=== PATIENT | male | born 1955 | race Caucasian/White ===

== ENCOUNTER 2023-03-13 18:06 | Emergency (ER) | payer OTHER ==
--- OUTSIDE RECORDS SUMMARY | 2023-03-13 18:10 | XMS REPORT | Clinical Summary ---
Author Name Unknown Organization [facility] Address [address] [place] [address] Care Team Providers Care Business Center Attendant Name Role Phone Hesham Lima MD Unavailable [phone] Brandin Curtis MD Primary Care Provider [phone] Quinton Montano MD Unavailable [phone] Mable Perales MD Unavailable [phone] Lyndon Patrick Unavailable [phone] Allergies Active Allergy Reactions Criticality Noted Date Comments Atorvastatin Other (See Comments) Low 11/23/2018 Other reaction(s): Other (see comments) Clopidogrel Hives,Other (See Comments) Medium 11/23/2018 Other reaction(s): Other (see comments) Patient reports getting hives. Meperidine Other (See Comments) Medium 11/23/2018 Vomiting Medications Medication Sig Dispensed Refills Start Date End Date Status Brilinta 90 mg tablet Take 1 tablet (90 mg) by mouth twice daily. 0 01/15/20 22 Active simethicone (MYLICON) 80 mg chewable tablet Chew 1 tablet (80 mg) every 6 (six) hours as needed for flatulence. 0 Active ondansetron (Zofran ODT) 8 mg disintegrating tabletIndications:A denocarcinoma, NOS of lower third of esophagus Dissolve 1 tablet (8 mg) on the tongue every 8 (eight) hours as needed for nausea or vomiting. (First Choice) 30 tablet 2 12/03/19 23 Active prochlorperazine (Compazine) 10 mg tabletIndications:A denocarcinoma, NOS of lower third of esophagus Take 1 tablet (10 mg) by mouth every 6 (six) hours as needed for nausea or vomiting. (Second Choice) 60 tablet 2 12/03/19 Active Additional Information Patient not taking.Reason: No longer taking, Reported on 01/02/2023 capecitabine (Xeloda) 500 mg tabletIndications:A denocarcinoma, NOS of lower third of esophagus Take 2 tablets by mouth every morning and take 3 tablets every evening Friday through Friday with radiation. 125 tablet 0 12/03/19 Active Additional Information Patient not taking.Reported on 03/13/2023 apixaban (ELIQUIS) 5 mg tabletIndications:p revention of venous thromboembolism recurrence Take 1 tablet (5 mg) by mouth every 12 (twelve) hours. 0 Active metoprolol tartrate (LOPRESSOR) 25 mg tablet Take 0.5 tablets (12.5 mg) by mouth twice daily. 0 12/23/19 Active aspirin 81 mg chewable tablet Chew 1 tablet (81 mg). 0 Active xyloxylin oral suspension (AMB-CMPD)Indicatio ns:Adenocarcinoma, NOS of lower third of esophagus Swish and swallow 15 mL by mouth 4 (four) times a day (before meals and at night) 480 mL 5 01/02/20 Active Additional Information Patient not taking.Reported on 03/13/2023 pantoprazole (PROTONIX) 40 mg EC tabletIndications:A denocarcinoma, NOS of lower third of esophagus TAKE 1 TABLET BY MOUTH 2 TIMES DAILY BEFORE MEALS 90 tablet 0 02/29/20 Active mirtazapine (REMERON) 15 mg tabletIndications:A denocarcinoma, NOS of lower third of esophagus TAKE 1 TABLET BY MOUTH EVERY DAY AT NIGHT NEEDED FOR SLEEP AND/OR APPETITE 30 tablet 0 02/29/20 Active rosuvastatin (CRESTOR) 20 mg tablet Take 1 tablet (20 mg) by mouth at bedtime. 0 Active carvedilol (COREG) 3.125 mg tablet Take 1 tablet (3.125 mg) by mouth twice daily. 0 01/15/20 22 023 Discontinued(No t Applicable) clonazePAM (KlonoPIN) 0.5 mg tablet Take 1 tablet (0.5 mg) by mouth at bedtime. 0 07/16/19 23 023 Discontinued(Re order) lisinopril (PRINIVIL,ZESTRIL) 10 mg tablet Take 1 tablet (10 mg) by mouth every morning. 0 01/15/20 22 023 Discontinued(No t Applicable) pantoprazole (PROTONIX) 40 mg EC tablet Take 1 tablet (40 mg) by mouth 2 (two) times a day before meals. 0 10/17/19 23 023 Discontinued(Re order) psyllium 0.4 gram cap Take 0.52 g by mouth daily. 0 01/15/20 22 023 Discontinued(No t Applicable) rosuvastatin (CRESTOR) 20 mg tablet Take 1 tablet (20 mg) by mouth at bedtime. 0 01/15/20 22 023 multivitamin tab tablet Take 1 tablet by mouth daily. 0 023 Discontinued(No t Applicable) milk thistle 175 mg tablet Take 1 tablet (175 mg) by mouth daily. 0 023 Discontinued(No t Applicable) pantoprazole (PROTONIX) 40 mg EC tabletIndications:A denocarcinoma, NOS of lower third of esophagus Take 1 tablet (40 mg) by mouth 2 (two) times a day before meals. 90 tablet 1 11/22/19 23 023 Discontinued(Re order) pantoprazole (PROTONIX) 40 mg EC tabletIndications:A denocarcinoma, NOS of lower third of esophagus Take 1 tablet (40 mg) by mouth 2 (two) times a day before meals. 90 tablet 1 11/27/19 23 023 Discontinued clonazePAM (KlonoPIN) 0.5 mg tabletIndications:A denocarcinoma, NOS of lower third of esophagus Take 1 tablet (0.5 mg) by mouth at bedtime. 14 tablet 0 12/20/19 23 023 Discontinued metoprolol tartrate (LOPRESSOR) 50 mg tabletIndications:v entricular rate control in atrial fibrillation Take 0.5 tablets (25 mg) by mouth twice daily. 25mg half tab twice a day 0 023 Discontinued(Th erapy completed) mirtazapine (Remeron) 15 mg tabletIndications:A denocarcinoma, NOS of lower third of esophagus Take 1 tablet (15 mg) by mouth nightly as needed for sleep (appetite). 30 tablet 0 12/27/19 23 023 Discontinued(Re order) mirtazapine (Remeron) 15 mg tabletIndications:A denocarcinoma, NOS of lower third of esophagus Take 1 tablet (15 mg) by mouth nightly as needed for sleep (appetite). 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 Decreased cardiac ejection fraction 01/21/2018 Encounters Date Type Department Care Team Description 03/13/2023 1:40 PM EXERCISER HORSE [facility] [address] [place] [address] Main [facility], 7th [place] [address] Brandin Curtis MD Adenocarcinoma, NOS of lower third of esophagus 03/13/2023 Travel 03/13/2023 Orders Only [facility] [address] [place] [address] Main [facility], 7th [place] [address] Sammi Navarro RPH 03/12/2023 12:30 PM EXERCISER HORSE Ancillary [facility] [address] [facility] [address] [place] [address] Brandin Curtis MD Adenocarcinoma, NOS of lower third of esophagus 03/12/2023 Prep for Surgery [facility] - Gastroenterology, Hepatology & Nutrition [address] [place] [address] Main dg, 7th [place] [address] Moises Morgan PA Adenocarcinoma, NOS of lower third of esophagus (Primary Dx) 03/12/2023 Travel 03/11/2023 Prep for Procedure [facility] [address] [place] [address] Main dg, 5th [place] [address] Fang Pritchard PA Adenocarcinoma, NOS of lower third of esophagus (Primary Dx) 03/10/2023 Orders Only [facility] [address] [place] [address] Main dg, 7th [place] [address] Rabmarii, aTlhadez, PA-C Adenocarcinoma, NOS of lower third of esophagus (Primary Dx) 02/27/2023 Refill [facility] Main Bldg, 7th [place] [address] Rabmarii, Forestamee, PA-C Adenocarcinoma, NOS of lower third of esophagus 02/27/2023 Refill [facility] [address] [place] [address] Main Bldg, 7th [place] [address] Rupali Pickering PA Adenocarcinoma, NOS of lower third of esophagus 01/31/2023 Orders Only [facility] [address] [place] [address] Main Bldg, 7th [place] [address] Rabmarii, Dustin, PA-C Adenocarcinoma, NOS of lower third of esophagus 01/13/2023 Orders Only [facility] [address] [place] [address] Main dg, 1st Floo [place] [address] Alison Winn APRN Adenocarcinoma, NOS of lower third of esophagus (Primary Dx) 01/09/2023 Documentation [facility] [address] [place] [address] Main [place]ld[place] [address] Quinton Montano MD 01/09/2023 Travel 01/08/2023 Travel 01/07/2023 Travel 01/06/2023 Travel 01/03/2023 Travel 01/02/2023 12:40 PM CDT [facility] [address] [place] [address] Main Bldg, 7th [place] [address] Brandin Curtis MD Adenocarcinoma, NOS of lower third of esophagus 01/02/2023 Orders Only [facility] - Surgical Oncology [facility] Main Bldg, 9th [place] [address] Brooke Terrazas APRN Adenocarcinoma, NOS of lower third of esophagus (Primary Dx) 01/02/2023 Travel 01/01/2023 10:50 AM CDT - 01/01/2023 11:59 PM CDT Hospital Encounter [facility] [address] [facility] Main Bldg, 1st Floo [place] [address] Quinton Montano MD Adenocarcinoma, NOS of lower third of esophagus (Primary Dx) Discharge Disposition: Home 01/01/2023 Travel 12/31/2022 10:45 AM CDT Nutrition Clinical Nutrition For your Nutrition appointment location directions please call: Brandin Curtis MD Cooke, Sarah K, RD 12/31/2022 Travel 12/30/2022 10:00 AM CDT Infusion MD [facility] [place] - Infusion [address] [facility] [address] [place] [address] Rupali Pickering PA Pickens, Mirasol A RN Adenocarcinoma, NOS of lower third of esophagus (Primary Dx) 12/30/2022 Travel 12/27/2022 Travel 12/26/2022 2:40 PM CDT [facility] [address] [place] [address] Main Bldg, 7th [place] [address] Brandin Curtis MD Encounter for other preprocedural examination (Primary Dx); Adenocarcinoma, NOS of lower third of esophagus; Loss of appetite 12/26/2022 1:45 PM CDT Nutrition Clinical Nutrition For your Nutrition appointment location directions please call: Brandin Curtis MD Cooke, Sarah K, RICK 12/26/2022 Orders Only [facility] Main Bldg, 7th [place] [address] Sammi Navarro RPH 12/26/2022 Travel 12/25/2022 Travel 12/24/2022 1:01 PM CDT - 12/24/2022 11:59 PM CDT Hospital Encounter [facility] [address] [facility] Main Bldg, 1st Floo [place] [address] Coby Rodas MD Ning, Matthew Stephen, MD Discharge Disposition: Home 12/24/2022 Travel 12/23/2022 Orders Only [facility] Main Bldg, 7th [place] [address] Rupali Pickering PA Adenocarcinoma, NOS of lower third of esophagus (Primary Dx) 12/19/2022 3:40 PM CDT Telemedicine [facility] Main Bldg, 7th [place] [address] Brandin Curtis MD Adenocarcinoma, NOS of lower third of esophagus (Primary Dx) 12/19/2022 Orders Only [facility] Main Bldg, 7th [place] [address] Brandin Curtis MD 12/19/2022 Orders Only [facility] [address] [place] [address] Main Bldg, 7th [place] [address] Sammi Navarro RPH 12/19/2022 Travel 12/18/2022 12:40 PM CDT - 12/18/2022 11:59 PM CDT Hospital Encounter [facility] [address] [facility] Main Bldg, 1st Floo [place] [address] Quinton Montano MD Discharge Disposition: Home 12/18/2022 Orders Only [facility] Main Bldg, 1st Floo [place] [address] Quinton Montano MD Adenocarcinoma, NOS of lower third of esophagus (Primary Dx) 12/18/2022 Documentation Clinical Nutrition For your Nutrition appointment location directions please call: Kaykay Hull RD 12/18/2022 Travel 12/17/2022 Telephone [facility] - Medical Oncology [address] Main Bldg, 7th [place] [address] Breann Bravo MA 12/17/2022 Travel 12/16/2022 2:15 PM CDT Infusion MD [facility] in [place] - Infusion [address] [place] [address] [address] [place] [address] Rupali Pickering PA Pickens, Mirasol A, RN Adenocarcinoma, NOS of lower third of esophagus (Primary Dx) 12/16/2022 Travel 12/13/2022 Travel 12/12/2022 Travel 12/11/2022 1:15 PM CDT - 12/11/2022 11:59 PM CDT Hospital Encounter [facility] Main Bldg, 1st Floo [place] [address] Quinton Montano MD Discharge Disposition: Home 12/11/2022 Documentation Clinical Nutrition For your Nutrition appointment location directions please call: Kaykay Hull RD 12/11/2022 Travel 12/10/2022 11:00 AM CDT Telemedicine [facility] Main Bldg, 7th [place] [address] Rupali Pickering PA Adenocarcinoma, NOS of lower third of esophagus (Primary Dx); Nausea; Encounter for preprocedural laboratory examination 12/10/2022 Travel 12/09/2022 1:45 PM CDT Infusion MD [facility] in [place] - Infusion [address] [place] [address] Rupali Pickering PA Castro, Sheila O RN Adenocarcinoma, NOS of lower third of esophagus (Primary Dx) 12/09/2022 Travel 12/06/2022 Travel 12/05/2022 1:00 PM CDT Nutrition Clinical Nutrition For your Nutrition appointment location directions please call: Brandin Curtis MD Cooke, Sarah K, RD 12/05/2022 Travel 12/04/2022 11:17 AM CDT - 12/04/2022 11:59 PM CDT Hospital Encounter [facility] [address] [place] [address] Main Bldg, 1st Floo near Elevator G [place] [id number] Quinton Montano MD Discharge Disposition: Home 12/04/2022 Travel 12/03/2022 4:30 PM CDT Infusion MD [facility] [place] - Infusion [address] [facility] [address] [place] [address] Rupali Pickering PA Momin, Romina A, RN Adenocarcinoma, NOS of lower third of esophagus (Primary Dx) 12/03/2022 Travel 11/29/2022 Orders Only [facility] [address] Main Bldg, 7th [place] [address] Rupali Pickering PA 11/29/2022 Travel 11/28/2022 Travel 11/27/2022 12:36 PM CDT - 11/27/2022 11:59 PM CDT Hospital Encounter [facility] Main Bldg, 1st [place]oo [place] [address] Quinton Montano MD Discharge Disposition: Home 11/27/2022 Travel 11/26/2022 Orders Only [facility] [address] Main Bldg, 7th [place] [address] Rupali Pickering PA Adenocarcinoma, NOS of lower third of esophagus (Primary Dx) 11/25/2022 6:00 AM CDT - 11/25/2022 11:59 PM CDT Hospital Encounter [facility] Main [place]ld[place] [address] Brandin Curtis MD Discharge Disposition: Home 11/22/2022 Orders Only [facility] [address] Main Bldg, 7th [place] [address] Brandin Curtis MD Adenocarcinoma, NOS of lower third of esophagus (Primary Dx) 11/22/2022 Documentation [facility] [address] Main [place]ld[place] [address] Quinton Montano MD 11/22/2022 Documentation [facility] Main Bld[place] [address] Quinton Montano MD 11/21/2022 Orders Only [facility] [address] Main Bldg, 7th [place] [address] Rupali Pickering PA Adenocarcinoma, NOS of lower third of esophagus (Primary Dx) 11/20/2022 1:24 PM CDT - 11/20/2022 11:59 PM CDT Hospital Encounter [facility] [address] Main Bldg near Elevator G [place] [id number] Quinton Montano MD Discharge Disposition: Home 11/20/2022 Documentation Radiation Treatment Center [facility] [address] Main Bldg near Elevator G [place] [id number] Quinton Montano MD 11/20/2022 Documentation [facility] Main Bldg near Elevator G [place] [id number] Quinton Montano MD 11/20/2022 Travel 11/19/2022 Multidisciplinary Visit [facility] - Surgical Oncology [address] Main Bldg, 9th [place] [address] Purvi De La Fuente RN 11/19/2022 Orders Only [facility] [address] Main Bldg, 7th [place] [address] Brandin Curtis MD 11/18/2022 Orders Only [facility] [address] Main Bldg, 1st Floo near Elevator G [place] [id number] Quinton Montano MD Adenocarcinoma, NOS of lower third of esophagus (Primary Dx) 11/15/2022 8:43 AM CDT - 11/15/2022 11:59 PM CDT Hospital Encounter [facility] [address] Main Bldg, 1st Floo near Elevator G [place] [id number] Rupali Pickering PA Ning, Matthew Stephen, MD Adenocarcinoma, NOS of lower third of esophagus Discharge Disposition: Home 11/15/2022 6:45 AM CDT - 11/15/2022 8:42 AM CDT Hospital Encounter Cardiopulmonary Center - Pulmonology Lab [address] [facility] Main Bldg, 6th [place] [address] Brooke Terrazas APRN Esophageal cancer Discharge Disposition: Home 11/15/2022 Travel 11/14/2022 3:20 PM CDT Consult [facility] - Surgical On[facility] Main Bldg, 9th [place] [address] Mable Perales MD Esophageal cancer 11/14/2022 2:32 PM CDT - 11/14/2022 11:59 PM CDT Hospital Encounter Diagnostic Laboratory Center [facility] Main [facility], [place] [address] Rupali Pickering PA Esophageal cancer Discharge Disposition: Home 11/14/2022 Travel 11/11/2022 3:40 PM CDT Telemedicine [facility] [address] [place] [address] Main dg, 7th [place] [address] Brandin Curtis MD Esophageal cancer (Primary Dx); Tobacco use 11/11/2022 Orders Only [facility] - [facility] Oncology [address] [place] [address] Main dg, 9th [place] [address] Brooke Terrazas APRN Esophageal cancer (Primary Dx) 11/08/2022 8:30 AM CDT Ancillary Procedure [facility] [address] [facility] 2nd [place] [address] Rupali Pickering PA Esophageal cancer 11/08/2022 Orders Only [facility] [address] [place] [address] Main Bldg, 7th [place] [address] Rupali Pickering PA 11/08/2022 Travel 11/07/2022 8:00 PM CDT Ancillary Procedure [facility] [address] [place] [address] Brandin Curtis MD Cancer 11/07/2022 2:20 PM CDT Office Visit [facility] [address] [place] [address] Main dg, 7th [place] [address] Brandin Curtis MD Esophageal cancer (Primary Dx) 11/07/2022 1:30 PM CDT NPR [facility] PATIENT ACCESS Brandin Curtis MD 11/07/2022 Orders Only [facility] [address] [facility] Main Bldg, 7th [place] [address] Rupali Pickering PA Esophageal cancer (Primary Dx) 11/07/2022 Travel 11/06/2022 Lab Requisition [facility] Hola Gao MD Gilbert-Lewis, Jaron Singh MD Discharge Disposition: Home 11/05/2022 Orders Only [facility] Main dg, 7th [place] [address] Rupali Pickering PA Esophageal cancer (Primary Dx) 11/01/2022 Orders Only [facility] Main dg, 7th [place] [address] Rupali Pickering PA Esophageal cancer (Primary Dx) 10/28/2022 Travel after 03/13/2022 Immunizations Name Administration Dates Next Due Moderna SARS-CoV-2 Vaccination 03/27/2022,2020,06/23/2020,05/24/2020 Zoster, Unspecified 11/09/2020 Surgical History Surgery Date Site/Laterality Comments CORONARY ARTERY BYPASS GRAFT 3 CHOLECYSTECTOMY UPPER GASTROINTESTINAL ENDOSCOPY 2022 Medical History Medical History Date Comments Myocardial infarction November 2017 Stents Hyperlipidemia Irregular heart beat Hearing loss 2002 Sinusitis 1980 Swallowing problem August 2022 Gastric reflux Gallstone Removed Sexual dysfunction 2017 Anxiety Family History Medical History Relation Name Comments Prostate cancer Father Julio César Jacques Skin cancer Father Julio César Jacques Ovarian cancer Mother Marisol Jacques Relation Name Status Comments Father Julio César Jacques Mother Marisol Jacques Social History Tobacco Use Types Packs/Day Years Used Date Smoking Tobacco: Every Day Cigarettes 1 Started: 11/22/1982; Last attempted to quit: 11/07/2022 Smokeless Tobacco: Never Tobacco Cessation:Ready to Q uit: Yes Alcohol Use Standard Drinks/Week Comments Not Currently 0 (1 standard drink = 0.6 oz pur e alcohol) Sex and Gender Information Value Date Recorded Sex Assigned at Not on file Gender Identity Not on file Sexual Orientation Not on file Job Start Date Occupation Industry Not on file Not on file Not on file Obstetrics History Last Filed Vital Signs Vital Sign Reading Time Taken Comments Blood Pressure 105/69 03/13/2023 1:57 PM EXERCISER HORSE Pulse 70 03/13/2023 1:57 PM EXERCISER HORSE Temperature 36.5 C (97.7 F) 03/13/2023 1:57 PM CS T Respiratory Rate 18 03/13/2023 1:57 PM EXERCISER HORSE Oxygen Saturation 97% 03/13/2023 1:57 PM EXERCISER HORSE Inhaled Oxygen Concentration - - Weight 80.2 kg (176 lb 12.9 oz) 03/13/2023 1:44 PM EXERCISER HORSE Height 179.3 cm (5' 10.59") 12/03/2022 3:33 PM C DT Body Mass Index 24.95 12/03/2022 3:33 PM CDT Plan of Treatment Upcoming Encounters Date Type Department Care Team Description 03/17/2023 Hospital Encounter [facility] [address] [place] [address], 5th [place] [address] 03/19/2023 10:30 AM EXERCISER HORSE Appointment [facility] [address] [place] [address], 1st Floo [place] [address] Quinton Montano MD [address] [place] [address] [id number] Scheduled Procedures Name Priority Associated Diagnoses Date/Ti me UPPER GASTROINTESTINAL ENDOS COPY WITH ENDOSCOPIC ULTRASOUND EXAMINATION Adenocarcinoma, NOS of lower third of esophagus Health Maintenance Due Date Last Done Comments COVID-19 Vaccination () 11/29/2022 03/27/2022, 02/14/2021, 06/23/2020, Additional history exists Medical Devices Implanted Type Area Cost Accounting Analyst Device Identifier Shelf Expiration Date Model / Serial / Lot Stent Stent Heart Description:Resolute Sathya 1. 3.0 mm x 34 mm, 2019-07-08 2. 3.0 mm x 22 mm, 2019-07-07 3. 3.5 mm x 18 mm, 2019-07-22 Procedures Procedure Name Priority Date/Time Associated Diagnosis Comments PETCT F18 FDG (FLUORODEOXYGLUCOSE) WITH CONTRAST Routine 03/12/2023 2:24 PM EXERCISER HORSE Adenocarcinoma, NOS of lower third of esophagus .CBC Routine 03/12/2023 11:59 AM EXERCISER HORSE Adenocarcinoma, NOS of lower third of esophagus CARCINOEMBRYONIC ANTIGEN Routine 023 11:59 AM EXERCISER HORSE Adenocarcinoma, NOS of lower third of esophagus LACTATE DEHYDROGENASE Routine 03/12/2023 11:59 AM EXERCISER HORSE Adenocarcinoma, NOS of lower third of esophagus PHOSPHORUS LEVEL Routine 03/12/2023 11:5 9 AM EXERCISER HORSE Adenocarcinoma, NOS of lower third of esophagus MAGNESIUM LEVEL Routine 03/12/2023 11:59 AM EXERCISER HORSE Adenocarcinoma, NOS of lower third of esophagus COMPREHENSIVE METABOLIC PANEL Routine 03/12/2023 11:59 AM EXERCISER HORSE Adenocarcinoma, NOS of lower third of esophagus COMPLETE BLOOD COUNT W/ DIFFERENTIAL Routine 03/12/2023 11:59 AM EXERCISER HORSE Adenocarcinoma, NOS of lower third of esophagus FRACTIONATED BILIRUBIN Routine 8:45 AM CDT Adenocarcinoma, NOS of lower third of esophagus TOTAL PROTEIN Routine 12/30/2022 8:45 AM CDT Adenocarcinoma, NOS of lower third of esophagus ASPARTATE AMINOTRANSFERASE Routine 12/30/2022 8:45 AM CDT Adenocarcinoma, NOS of lower third of esophagus ALANINE AMINOTRANSFERASE Routine 023 8:45 AM CDT Adenocarcinoma, NOS of lower third of esophagus ALKALINE PHOSPHATASE Routine 12/30/2022 8:45 AM CDT Adenocarcinoma, NOS of lower third of esophagus ALBUMIN LEVEL Routine 12/30/2022 8:45 AM CDT Adenocarcinoma, NOS of lower third of esophagus CALCIUM LEVEL Routine 12/30/2022 8:45 AM CDT Adenocarcinoma, NOS of lower third of esophagus .GLOMERULAR FILTRATION RATE Routine 12/30/2022 8:45 AM CDT Adenocarcinoma, NOS of lower third of esophagus SERUM CREATININE Routine 12/30/2022 8:45 AM CDT Adenocarcinoma, NOS of lower third of esophagus ELECTROLYTE PANEL Routine 12/30/2022 8:4 5 AM CDT Adenocarcinoma, NOS of lower third of esophagus BLOOD UREA NITROGEN Routine 12/30/2022 8 :45 AM CDT Adenocarcinoma, NOS of lower third of esophagus GLUCOSE LEVEL Routine 12/30/2022 8:45 AM CDT Adenocarcinoma, NOS of lower third of esophagus DIFFERENTIAL Routine 12/30/2022 8:45 AM CDT Adenocarcinoma, NOS of lower third of esophagus .CBC Routine 12/30/2022 8:45 AM CDT Adenocarcinoma, NOS of lower third of esophagus COMPREHENSIVE METABOLIC PANEL Routine 12/30/2022 8:45 AM CDT Adenocarcinoma, NOS of lower third of esophagus COMPLETE BLOOD COUNT W/ DIFFERENTIAL Routine 12/30/2022 8:45 AM CDT Adenocarcinoma, NOS of lower third of esophagus FRACTIONATED BILIRUBIN Routine 10:56 AM CDT Adenocarcinoma, NOS of lower third of esophagus TOTAL PROTEIN Routine 12/16/2022 10:56 AM CDT Adenocarcinoma, NOS of lower third of esophagus ASPARTATE AMINOTRANSFERASE Routine 12/16/2022 10:56 AM CDT Adenocarcinoma, NOS of lower third of esophagus ALANINE AMINOTRANSFERASE Routine 023 10:56 AM CDT Adenocarcinoma, NOS of lower third of esophagus ALKALINE PHOSPHATASE Routine 12/16/2022 10:56 AM CDT Adenocarcinoma, NOS of lower third of esophagus ALBUMIN LEVEL Routine 12/16/2022 10:56 AM CDT Adenocarcinoma, NOS of lower third of esophagus CALCIUM LEVEL Routine 12/16/2022 10:56 AM CDT Adenocarcinoma, NOS of lower third of esophagus .GLOMERULAR FILTRATION RATE Routine 12/16/2022 10:56 AM CDT Adenocarcinoma, NOS of lower third of esophagus SERUM CREATININE Routine 12/16/2022 10:5 6 AM CDT Adenocarcinoma, NOS of lower third of esophagus ELECTROLYTE PANEL Routine 12/16/2022 10: 56 AM CDT Adenocarcinoma, NOS of lower third of esophagus BLOOD UREA NITROGEN Routine 12/16/2022 1 0:56 AM CDT Adenocarcinoma, NOS of lower third of esophagus GLUCOSE LEVEL Routine 12/16/2022 10:56 AM CDT Adenocarcinoma, NOS of lower third of esophagus DIFFERENTIAL Routine 12/16/2022 10:56 AM CDT Adenocarcinoma, NOS of lower third of esophagus .CBC Routine 12/16/2022 10:56 AM CDT Adenocarcinoma, NOS of lower third of esophagus COMPREHENSIVE METABOLIC PANEL Routine 12/16/2022 10:56 AM CDT Adenocarcinoma, NOS of lower third of esophagus COMPLETE BLOOD COUNT W/ DIFFERENTIAL Routine 12/16/2022 10:56 AM CDT Adenocarcinoma, NOS of lower third of esophagus FRACTIONATED BILIRUBIN Routine 3 11:02 AM CDT Adenocarcinoma, NOS of lower third of esophagus TOTAL PROTEIN Routine 12/09/2022 11:02 AM CDT Adenocarcinoma, NOS of lower third of esophagus ASPARTATE AMINOTRANSFERASE Routine 12/09/2022 11:02 AM CDT Adenocarcinoma, NOS of lower third of esophagus ALANINE AMINOTRANSFERASE Routine 023 11:02 AM CDT Adenocarcinoma, NOS of lower third of esophagus ALKALINE PHOSPHATASE Routine 12/09/2022 11:02 AM CDT Adenocarcinoma, NOS of lower third of esophagus ALBUMIN LEVEL Routine 12/09/2022 11:02 AM CDT Adenocarcinoma, NOS of lower third of esophagus CALCIUM LEVEL Routine 12/09/2022 11:02 AM CDT Adenocarcinoma, NOS of lower third of esophagus .GLOMERULAR FILTRATION RATE Routine 12/09/2022 11:02 AM CDT Adenocarcinoma, NOS of lower third of esophagus SERUM CREATININE Routine 12/09/2022 11:0 2 AM CDT Adenocarcinoma, NOS of lower third of esophagus ELECTROLYTE PANEL Routine 12/09/2022 11: 02 AM CDT Adenocarcinoma, NOS of lower third of esophagus BLOOD UREA NITROGEN Routine 12/09/2022 1 1:02 AM CDT Adenocarcinoma, NOS of lower third of esophagus GLUCOSE LEVEL Routine 12/09/2022 11:02 AM CDT Adenocarcinoma, NOS of lower third of esophagus DIFFERENTIAL Routine 12/09/2022 11:02 AM CDT Adenocarcinoma, NOS of lower third of esophagus .CBC Routine 12/09/2022 11:02 AM CDT Adenocarcinoma, NOS of lower third of esophagus COMPREHENSIVE METABOLIC PANEL Routine 12/09/2022 11:02 AM CDT Adenocarcinoma, NOS of lower third of esophagus COMPLETE BLOOD COUNT W/ DIFFERENTIAL Routine 12/09/2022 11:02 AM CDT Adenocarcinoma, NOS of lower third of esophagus FRACTIONATED BILIRUBIN Routine 11:17 AM CDT Adenocarcinoma, NOS of lower third of esophagus TOTAL PROTEIN Routine 12/03/2022 11:17 AM CDT Adenocarcinoma, NOS of lower third of esophagus ASPARTATE AMINOTRANSFERASE Routine 12/03/2022 11:17 AM CDT Adenocarcinoma, NOS of lower third of esophagus ALANINE AMINOTRANSFERASE Routine 023 11:17 AM CDT Adenocarcinoma, NOS of lower third of esophagus ALKALINE PHOSPHATASE Routine 12/03/2022 11:17 AM CDT Adenocarcinoma, NOS of lower third of esophagus ALBUMIN LEVEL Routine 12/03/2022 11:17 AM CDT Adenocarcinoma, NOS of lower third of esophagus CALCIUM LEVEL Routine 12/03/2022 11:17 AM CDT Adenocarcinoma, NOS of lower third of esophagus .GLOMERULAR FILTRATION RATE Routine 12/03/2022 11:17 AM CDT Adenocarcinoma, NOS of lower third of esophagus SERUM CREATININE Routine 12/03/2022 11:1 7 AM CDT Adenocarcinoma, NOS of lower third of esophagus ELECTROLYTE PANEL Routine 12/03/2022 11: 17 AM CDT Adenocarcinoma, NOS of lower third of esophagus BLOOD UREA NITROGEN Routine 12/03/2022 1 1:17 AM CDT Adenocarcinoma, NOS of lower third of esophagus GLUCOSE LEVEL Routine 12/03/2022 11:17 AM CDT Adenocarcinoma, NOS of lower third of esophagus DIFFERENTIAL Routine 12/03/2022 11:17 AM CDT Adenocarcinoma, NOS of lower third of esophagus .CBC Routine 12/03/2022 11:17 AM CDT Adenocarcinoma, NOS of lower third of esophagus CARCINOEMBRYONIC ANTIGEN Routine 023 11:17 AM CDT Adenocarcinoma, NOS of lower third of esophagus COMPREHENSIVE METABOLIC PANEL Routine 12/03/2022 11:17 AM CDT Adenocarcinoma, NOS of lower third of esophagus COMPLETE BLOOD COUNT W/ DIFFERENTIAL Routine 12/03/2022 11:17 AM CDT Adenocarcinoma, NOS of lower third of esophagus SPIROMETRY W/O DILATORS, DLCO AND BODY PLETHSMOGRAPHIC LUNG VOLUMES Routine 11/15/2022 9:32 AM CDT Esophageal cancer MD CAMACHO BLOOD CONTROL Routine 11/14/2022 2:40 PM CDT HP LB LIQUID BIOPSY PANEL V1 INTERPRETATION AND REPORT Routine 11/14/2022 2:40 PM CDT FRACTIONATED BILIRUBIN Routine 2:40 PM CDT Esophageal cancer TOTAL PROTEIN Routine 11/14/2022 2:40 PM CDT Esophageal cancer ASPARTATE AMINOTRANSFERASE Routine 11/14/2022 2:40 PM CDT Esophageal cancer ALANINE AMINOTRANSFERASE Routine 023 2:40 PM CDT Esophageal cancer ALKALINE PHOSPHATASE Routine 11/14/2022 2:40 PM CDT Esophageal cancer ALBUMIN LEVEL Routine 11/14/2022 2:40 PM CDT Esophageal cancer CALCIUM LEVEL Routine 11/14/2022 2:40 PM CDT Esophageal cancer .GLOMERULAR FILTRATION RATE Routine 11/14/2022 2:40 PM CDT Esophageal cancer SERUM CREATININE Routine 11/14/2022 2:40 PM CDT Esophageal cancer ELECTROLYTE PANEL Routine 11/14/2022 2:4 0 PM CDT Esophageal cancer BLOOD UREA NITROGEN Routine 11/14/2022 2 :40 PM CDT Esophageal cancer GLUCOSE LEVEL Routine 11/14/2022 2:40 PM CDT Esophageal cancer DIFFERENTIAL Routine 11/14/2022 2:40 PM CDT Esophageal cancer .CBC Routine 11/14/2022 2:40 PM CDT Esophageal cancer HP LB NRAS MUTATION ANALYSIS COLLECTION, BLOOD Routine 11/14/2022 2:40 PM CDT Esophageal cancer HP LB BRAF MUTATION ANALYSIS COLLECTION, BLOOD Routine 11/14/2022 2:40 PM CDT Esophageal cancer HP LB APC MUTATION ANALYSIS COLLECTION, BLOOD Routine 11/14/2022 2:40 PM CDT Esophageal cancer CARCINOEMBRYONIC ANTIGEN Routine 023 2:40 PM CDT Esophageal cancer PHOSPHORUS LEVEL Routine 11/14/2022 2:40 PM CDT Esophageal cancer MAGNESIUM LEVEL Routine 11/14/2022 2:40 PM CDT Esophageal cancer LACTATE DEHYDROGENASE Routine 11/14/2022 2:40 PM CDT Esophageal cancer COMPREHENSIVE METABOLIC PANEL Routine 11/14/2022 2:40 PM CDT Esophageal cancer COMPLETE BLOOD COUNT W/ DIFFERENTIAL Routine 11/14/2022 2:40 PM CDT Esophageal cancer PETCT F18 FDG (FLUORODEOXYGLUCOSE) WITH CONTRAST Routine 11/08/2022 10:00 AM CDT Esophageal cancer POC CREATININE Routine 11/08/2022 8:[address] CHEST ABDOMEN Routine 10/18/2022 3:11 PM CDT Cancer PATHOLOGY OUTSIDE INTERPRETATION Routine 10/16/2022 after 03/13/2022 Results * PETCT F18 FDG (Fluorodeoxyglucose) with contrast (03/12/2023 2:24 PM [facility]) Only the most recent of2 resultswithin the time period is included. Anatomical Region Laterality Modality Whole Body Positron Emissio n Tomography (PET) 03/12/2023 2:39 PM [facility] Impressions 03/12/2023 2:55 PM [facility] There has been marked decrease in extent of the treated primary esophageal malignancy associated with a decrease in FDG uptake. There are no michele metastases. There are lung nodules that have increased in size and there are also new lung nodules consistent with metastases. There are new FDG avid hepatic and renal metastases. ACTIONABLE ITEMS/RECOMMENDATIONS: None. Narrative 03/12/2023 2:55 PM [facility] FULL RESULT: Examination: Contrast enhanced FDG PET/CT, 03/12/2023 2:24 PM Clinical History: Adenocarcinoma, NOS of lower third of esophagus. Indication: To determine response to therapy and subsequent treatment strategy. Restaging. Comparison: PET/CT 11/08/2022. Technique: Following intravenous administration of 8.8 mCi F-18 fluorodeoxyglucose (FDG), a CT attenuation corrected PET scan was obtained from the lower aspect of the skull to the thighs. The CT component of the study was performed after intravenous administration of contrast Findings: Chest: 1. There has been a marked decrease in circumferential thickening the wall of the distal third of the esophagus associated with a decrease in FDG uptake (SUV max 3, previously 20) consistent with response of a primary malignancy to therapy. There is a small hiatal hernia. 2. A 1.3 cm FDG avid (SUV max 4.9) nodule in the superior segment of the right lower lobe has increased in size and FDG uptake (previously 1.1 cm, SUV max 2.8). There are new nodules in the right lung (image 77, 83, 92) that are FDG avid. The largest nodule has a maximal dimension of 9 mm and a SUV max of 4.6. There is also a new 3 mm nodule in the left lung (image 80). There is a diffusely calcified benign right lung nodule. There are linear and irregular opacity opacities in the paramediastinal regions of both lungs as well as in the lower lobes that are FDG avid and are consistent with sequelae of radiation therapy. 3. There are no enlarged or FDG avid intrathoracic or extrathoracic lymph nodes. 4. There is coronary artery calcification consistent sequelae of atherosclerosis. Abdomen and Pelvis: 5. There is a new small focal region of increased FDG uptake (SUV max 6.7) in the liver (image 111) consistent with a metastasis. 6. The adrenals are normal. There is a new 2.5 cm low-attenuation lesion cortex of the right kidney (image 157) that is FDG avid (SUV max 14.8) and a 2 cm focal low-attenuation lesion in the cortex of the left kidney (image 158) that is FDG avid) SUV max 20.2) and consistent with metastases. Musculoskeletal: 7. There are no FDG avid osseus metastases. Procedure Note Indra Stover MD - 03/12/2023 FULL RESULT: Examination: Contrast enhanced FDG PET/CT, 03/12/2023 2:24 PM Clinical History: Adenocarcinoma, NOS of lower third of esophagus. Indication: To determine response to therapy and subsequent treatmentstrategy. Restaging. Comparison: PET/CT 11/08/2022. Technique: Following intravenous administration of 8.8 mCi F- 18fluorodeoxyglucose (FDG), a CT attenuation corrected PET scan was obtainedfrom the lower aspect of the skull to the thighs. The CT component of thestudy was performed after intravenous administration of contrast Findings: Chest: 1. There has been a marked decrease in circumferential thickening the wallof the distal third of the esophagus associated with a decrease in FDGuptake (SUV max 3, previously 20) consistent with response of a primarymalignancy to therapy. There is a small hiatal hernia. 2. A 1.3 cm FDG avid (SUV max 4.9) nodule in the superior segment of theright lower lobe has increased in size and FDG uptake (previously 1.1 cm,SUV max 2.8). There are new nodules in the right lung (image 77, 83, 92)that are FDG avid. The largest nodule has a maximal dimension of 9 mm osmin SUV max of 4.6. There is also a new 3 mm nodule in the left lung (image80). There is a diffusely calcified benign right lung nodule. There arelinear and irregular opacity opacities in the paramediastinal regions ofboth lungs as well as in the lower lobes that are FDG avid and areconsistent with sequelae of radiation therapy. 3. There are no enlarged or FDG avid intrathoracic or extrathoracic lymphnodes. 4. There is coronary artery calcification consistent sequelae ofatherosclerosis. Abdomen and Pelvis: 5. There is a new small focal region of increased FDG uptake (SUV max 6.7)in the liver (image 111) consistent with a metastasis. 6. The adrenals are normal. There is a new 2.5 cm low-attenuation lesioncortex of the right kidney (image 157) that is FDG avid (SUV max 14.8) osmin 2 cm focal low-attenuation lesion in the cortex of the left kidney(image 158) that is FDG avid) SUV max 20.2) and consistent withmetastases. Musculoskeletal: 7. There are no FDG avid osseus metastases. IMPRESSION: There has been marked decrease in extent of the treated primary esophagealmalignancy associated with a decrease in FDG uptake. There are no nodalmetastases. There are lung nodules that have increased in size and thereare also new lung nodules consistent with metastases. There are new FDGavid hepatic and renal metastases. ACTIONABLE ITEMS/RECOMMENDATIONS: None. Brandin Curtis MD IMG PETCT ORDERABLES * (ABNORMAL) .CBC (03/12/2023 11:59 AM [facility]) Only the most recent of6 resultswithin the time period is included. White Blood Cell 8.8 4.1 - 10.5 K/uL 03/12/2023 12:03 PM [facility] Red Blood Cell 4.56 4.30 - 6.04 M/uL 03/12/2023 12:03 PM [facility] Hemoglobin 12.8(L) 13.3 - 17.4 g/dL 03/12/2023 12:03 PM [facility] Hematocrit 40.2 39.5 - 51.8 % 03/12/2023 12:03 PM [facility] Mean Cell Volume 88 82 - 99 fL 03/12/2023 12:03 PM [facility] Mean Cell Hemoglobin 28.1 26.6 - 33.2 pg 03/12/2023 12:03 PM [facility] Mean Cell Hemoglobin Concentration 31.8 31.1 - 35.2 g/dL 03/12/2023 12:03 PM [facility] RDW-SD 46.4 37.5 - 49.7 fL 03/12/2023 12:03 PM [facility] Red Cell Diameter Width 14.2 11.6 - 15.5 % 03/12/2023 12:03 PM [facility] Platelet 203 160 - 397 K/uL 03/12/2023 12:03 PM [facility] Mean Platelet Volume 8.9(L) 9.1 - 12.6 fL 03/12/2023 12:03 PM [facility] Neutrophil % 69.1 43.2 - 72.7 % 03/12/2023 12:03 PM [facility] Lymphocyte % 22.1 16.8 - 46.2 % 03/12/2023 12:03 PM [facility] Monocyte % 7.8 5.1 - 12.5 % 03/12/2023 12:03 PM [facility] Eosinophil % 0.7 0.4 - 6.3 % 03/12/2023 12:03 PM [facility] Basophil % 0.2 0.2 - 1.4 % 03/12/2023 12:03 PM [facility] IGRE % 0.1 0.1 - 1.5 % 03/12/2023 12:03 PM [facility] Comment:The IGRE% includes M etamyelocytes, Myelocytes and Promyelocytes. Neutrophil Abs 6.11 1.95 - 7.25 K/uL 03/12/2023 12:03 PM [facility] Lymphocyte Abs 1.95 1.01 - 3.24 K/uL 03/12/2023 12:03 PM [facility] Monocyte Abs 0.69 0.24 - 0.85 K/uL 03/12/2023 12:03 PM [facility] Eosinophil Abs 0.06 0.02 - 0.50 K/uL 03/12/2023 12:03 PM [facility] Basophil Abs 0.02 0.02 - 0.09 K/uL 03/12/2023 12:03 PM [facility] IG Abs 0.01 0.01 - 0.12 K/uL 03/12/2023 12:03 PM [facility] Blood Venipuncture / Unknown 03/12/2023 11:59 AM [facility] 03/12/2023 11:59 AM [facility] Dustin Irvin PA-C LAB BLOOD ORDERA BLES [facility] [address] [facility] [place], [facility] [address] [place] [address] * (ABNORMAL) CMP (03/12/2023 11:59 AM [facility]) Bilirubin Total 0.4 <=1.2 mg/dL 03/12/2023 12:31 PM [facility] Comment: Indocyanine Green (ICG) may cause falsely elevated bilirubin results. Total and direct bilirubin must not be measured from samples containing indocyanine green. False elevation of total bilirubin can be seen in patients with IgG concentrations above 28 g/L. This result was previously suppressed from the chart. Bilirubin Direct <0.2 <=0.3 mg/dL 03/12/2023 12:31 PM [facility] Comment: Indocyanine Green (ICG) may cause falsely elevated bilirubin results. Total and direct bilirubin must not be measured from samples containing indocyanine green. This result was previously suppressed from the chart. Bilirubin Indirect 2022 12:31 PM [facility] Comment:Unable to calculate Indirect Bilirubin result due to some parameters are outside reportable range eGFR 95 >=60 mL/min/1. 73 sq. m 03/12/2023 12:31 PM [facility] Comment: The eGFRcr is calculated with the 2020 CKD-EPI creatinine equation using creatinine, patient's age, and sex for adults 18 years of age and older. Other factors, especially muscle mass, may affect accuracy and need to be considered. According to the Kidney Disease: Improving Global Outcomes (KDIGO) CKD Work Group 2012 Clinical Practice Guideline, chronic kidney disease (CKD) is defined as the abnormalities of kidney structure or function, present for more than 3 months, with implications for health. CKD should be classified by cause, GFR category, and albuminuria category. KDIGO guidelines provide the following GFR categories. Stage / Description / GFR mL/min/1.73 m2: G1* / Normal or high / >= 90 G2* / Mildly decreased / 60-89 G3a / Mildly to moderately decreased / 45-59 G3b / Moderately to severely decreased / 30-44 G4 / Severely decreased / 15-29 G5 / Kidney failure / <15 *In the absence of evidence of kidney damage, neither G1 nor G2 fulfill criteria for CKD. Tot Protein 7.3 6.4 - 8.3 gm/dL 03/12/2023 12:31 PM [facility] Comment:This result was prev iously suppressed from the chart. Calcium Level Total 9.8 8.2 - 10.2 mg/dL 03/12/2023 12:31 PM [facility] Comment:This result was prev iously suppressed from the chart. Alkaline Phosphatase 36(L) 40 - 129 U/L 03/12/2023 12:31 PM [facility] Comment:This result was prev iously suppressed from the chart. Albumin Level 4.5 3.5 - 5.2 gm/dL 03/12/2023 12:31 PM [facility] Comment:This result was prev iously suppressed from the chart. AST 20 <=40 U/L 03/12/2023 12:31 PM [facility] Comment:This result was prev iously suppressed from the chart. ALT 12 <=41 U/L 03/12/2023 12:31 PM [facility] Comment:This result was prev iously suppressed from the chart. Sodium Level 137 136 - 145 mmol/L 03/12/2023 12:31 PM [facility] Comment:This result was prev iously suppressed from the chart. Potassium Level 4.3 3.4 - 4.5 mmol/L 03/12/2023 12:31 PM [facility] Comment:This result was prev iously suppressed from the chart. Chloride 103 98 - 107 mmol/L 03/12/2023 12:31 PM [facility] Comment:This result was prev iously suppressed from the chart. CO2 26 22 - 29 mmol/L 03/12/2023 12:31 PM [facility] Comment:This result was prev iously suppressed from the chart. Anion Gap 8 4 - 14 mmol/L 03/12/2023 12:31 PM [facility] Comment:This result was prev iously suppressed from the chart. Creatinine 0.87 0.67 - 1.17 mg/dL 03/12/2023 12:31 PM [facility] Comment:This result was prev iously suppressed from the chart. BUN 18 6 - 23 mg/dL 03/12/2023 12:31 PM [facility] Comment:This result was prev iously suppressed from the chart. Glucose Level 102(H) 70 - 99 mg/dL 03/12/2023 12:31 PM [facility] Comment: Effective 10/25/15, the glucose reference intervals have been updated based on [place] Diabetes [employer] guidelines (Standards of Medical Care in Diabetes 2016. Diabetes Care 2016; 39: S13-S22). Fasting blood glucose: Normal: 70-99 mg/dL Impaired fasting glucose (increased risk for diabetes or pre-diabetes): 100-125 mg/dL Diabetes mellitus: >/=126 mg/dL Random blood glucose: Normal: 70-199 mg/dL Note: Random glucose >100 mg/dL is associated with increased risk for diabetes. This result was previously suppressed from the chart. Blood Venipuncture / Unknown 03/12/2023 11:59 AM [facility]ERC[facility]SE 03/12/2023 11:59 AM [facility] Dustin Irvin PA-C LAB BLOOD ORDERA BLES Performing Organization Address City/[facility]/ZIP Co de Phone Number [address], [address] [address] * Phosphorus Level (03/12/2023 11:59 AM EXERC[facility]ER [facility]ORSE) Only the most recent of2 resultswithin the time period is included. Phosphorus Level 3.9 2.5 - 4.5 mg/dL 03/12/2023 12:31 PM [facility] Blood Venipuncture / Unknown 03/12/2023 11:59 AM [facility] 03/12/2023 11:59 AM EXERC[facility]ER [facility]ORSE Dustin BAIG-Zari LAB BLOOD ORDERA BLES [address] [address] * Magnesium Level (03/12/2023 11:59 AM EXERCISER [facility]ORSE) Only the most recent of2 resultswithin the time period is included. Magnesium Level 2.3 1.6 - 2.6 mg/dL 03/12/2023 12:31 PM [facility] Blood Venipuncture / Unknown 03/12/2023 11:59 AM EXERC[facility]ER HORSE 03/12/2023 11:59 AM EXERCISER [facility]ORSE [address] [employer] PA-C LAB BLOOD ORDERA BLES Performing Organization Address City/[facility] Co de Phone Number [place] [address] [place] [address] * (ABNORMAL) LDH (03/12/2023 11:59 AM EXERCISER HORSE) Only the most recent of2 resultswithin the time period is included. LDH 251(H) 135 - 225 U/L 03/12/2023 12:31 PM [facility]ERC[facility]SE JULIAN Blood Venipuncture / Unknown 03/12/2023 11:59 AM EXERC[facility]ER [facility]ORSE 03/12/2023 11:59 AM EXERCISER HORSE Fauzia JULIAN - 03/12/2023 12:31 PM [facility] Results greater than 1651 U/L may not be reliable due to matrix effect with extended dilution as it exceeds the miscellaneous machine operator's recommended limit. Caution should be exercised when interpreting such values and done in conjunction with clinical context. Dustin FernandezeRelyx PA-C LAB BLOOD ORDERA BLES Performing Organization Address City/[facility]/ZIP Co de Phone Number [address] [address] * (ABNORMAL) CEA (03/12/2023 11:59 AM EXERCISER HORSE) Only the most recent of3 resultswithin the time period is included. Carcinoembryonic Antigen 8.2(H) <=3.8 ng/mL 03/12/2023 12:31 PM [facility] JULIAN Blood Venipuncture / Unknown 03/12/2023 11:59 AM [facility]ERC[facility]ER [facility]ORSE 03/12/2023 11:59 AM EXERCISER HORSE Fauzia JULIAN - 03/12/2023 12:31 PM [facility] Reference Ranges (age 20-69 years): Non-smoker: 0.0 - 3.8 ng/mL Smoker: 0.0 - 5.5 ng/mL This test is measured by electrochemiluminescence immunoassay on [employer] immunoassay analyzers. Results obtained in different methods are not interchangeable. Dustin Irvin PA-C LAB BLOOD ORDERA BLES [facility] [address] [facility] [address] [place], [facility] [address] [place] [address] * .Serum Creatinine (12/30/2022 8:45 AM CDT) Only the most recent of5 resultswithin the time period is included. Creatinine 0.85 0.67 - 1.17 mg/dL [facility] Comment:Testing performed at [facility], [address] [place] [address] Blood 12/30/2022 8:45 AM CDT 12/30/2022 8:54 AM CDT Rupali BAIG LAB BLOOD ORDERABLES [facility] [place] [address], [address] [place] [address] * Glomerular Filtration Rate (12/30/2022 8:45 AM CDT) Only the most recent of5 resultswithin the time period is included. eGFR 96 >=60 mL/min/1.7 3 sq. m [facility] Comment: The eGFRcr is calculated with the 2020 CKD-EPI creatinine equation using creatinine, patient's age, and sex for adults 18 years of age and older. Other factors, especially muscle mass, may affect accuracy and need to be considered. According to the Kidney Disease: Improving Global Outcomes (KDIGO) CKD Work Group 2012 Clinical Practice Guideline, chronic kidney disease (CKD) is defined as the abnormalities of kidney structure or function, present for more than 3 months, with implications for health. CKD should be classified by cause, GFR category, and albuminuria category. KDIGO guidelines provide the following GFR categories Stage Description GFR mL/min/1.73 m2 G1* Normal or high >= 90 G2* Mildly decreased 60-89 G3a Mildly to moderately decreased 45-59 G3b Moderately to severely decreased 30-44 G4 Severely decreased 15-29 G5 Kidney failure <15 *In the absence of evidence of kidney damage, neither G1 nor G2 fulfill criteria for CKD. Testing performed at [facility], [address] [place] [address] Blood 12/30/2022 8:45 AM CDT 12/30/2022 8:54 AM CDT Rupali [place] PA LAB BLOOD ORDERABLES Performing Organization Address [facility]/ZIP Co de Phone Number [address], [address] [place] [address] * Fractionated Bilirubin (12/30/2022 8:45 AM CDT) Only the most recent of5 resultswithin the time period is included. Bili Total 0.5 <=1.2 mg/dL [facility] Comment: Indocyanine Green (ICG) may cause falsely elevated bilirubin results. Total and direct bilirubin must not be measured from samples containing indocyanine green. False elevation of total bilirubin can be seen in patients with IgG concentrations above 28 g/L. Testing performed at [facility], [address] [place] [address] Bili Direct 0.2 <=0.3 mg/dL [facility] Comment: Indocyanine Green (ICG) may cause falsely elevated bilirubin results. Total and direct bilirubin must not be measured from samples containing indocyanine green. Testing performed at [facility], [address] [place] [address] Bili Indirect 0.3 0.0 - 0.9 mg/dL [facility] Comment:Testing performed at [facility], [address] [place] [address] Blood 12/30/2022 8:45 AM CDT 12/30/2022 8:54 AM CDT Rupali Pickering PA LAB BLOOD ORDERABLES [address], [address] [place] [address] * (ABNORMAL) Differential (12/30/2022 8:45 AM CDT) Only the most recent of5 resultswithin the time period is included. Neutrophil % 75.7(H) 43.2 - 72.7 % [place] Comment:All components of th e Differential performed at [facility], [address] [place] [address] Lymphocyte % 3.0(L) 16.8 - 46.2 % [facility] Comment:As part of Different ial, testing performed at [facility], [address] [place] [address] Monocyte % 19.6(H) 5.1 - 12.5 % [facility] Comment:As part of Different ial, testing performed at [facility], [address] [place] [address] Eosinophil % 1.4 0.4 - 6.3 % [facility] Comment:As part of Different ial, testing performed at [facility], [address] [place] [address] Basophil % 0.3 0.2 - 1.4 % [facility] Comment:As part of Different ial, testing performed at [facility], [address] [place] [address] Neutrophil Abs 5.29 1.95 - 7.25 K/uL [facility] Comment:As part of Different ial, testing performed at [facility], [address] [place] [address] Lymphocyte Abs 0.21(L) 1.01 - 3.24 K/uL [place] Comment:As part of Different ial, testing performed at [facility], [address] [place] [address] Monocyte Abs 1.37(H) 0.24 - 0.85 K/uL [facility] Comment:As part of Different ial, testing performed at [facility], [address] [place] [address] Eosinophil Abs 0.10 0.02 - 0.50 K/uL [facility] Comment:As part of Different ial, testing performed at [facility], [address] [place] [address] Basophil Abs 0.02 0.02 - 0.09 K/uL [place] Comment:As part of Different ial, testing performed at [facility], [address] [place] [address] Blood 12/30/2022 8:45 AM CDT 12/30/2022 8:54 AM CDT [facility] PA LAB BLOOD ORDERABLES [address], [address] [place] [address] * BUN (12/30/2022 8:45 AM CDT) Only the most recent of5 resultswithin the time period is included. BUN 17 6 - 23 mg/dL [place] Comment:Testing performed at [facility], [address] [place] [address] Blood 12/30/2022 8:45 AM CDT 12/30/2022 8:54 AM CDT [facility] PA LAB BLOOD ORDERABLES Performing Organization Address City/[facility]/ZIP Co de Phone Number [address], [address] [address] * ALT (12/30/2022 8:45 AM CDT) Only the most recent of5 resultswithin the time period is included. ALT 15 <=41 U/L [place] Comment:Testing performed at [facility], [address] [place] [address] Blood 12/30/2022 8:45 AM CDT 12/30/2022 8:54 AM CDT Rupali [place] PA LAB BLOOD ORDERABLES [address], [facility] [address] [place] [address] * Aspartate Aminotransferase (12/30/2022 8:45 AM CDT) Only the most recent of5 resultswithin the time period is included. AST 20 <=40 U/L [place] Comment:Testing performed at [facility], [address] [place] [address] Blood 12/30/2022 8:45 AM CDT 12/30/2022 8:54 AM CDT [facility] PA LAB BLOOD ORDERABLES [address], [facility] [address] [place] [address] * Total Protein (12/30/2022 8:45 AM CDT) Only the most recent of5 resultswithin the time period is included. Total Protein 6.8 6.4 - 8.3 g/dL [place] Comment:Testing performed at [facility], [address] [place] [address] Blood 12/30/2022 8:45 AM CDT 12/30/2022 8:54 AM CDT [facility] PA LAB BLOOD ORDERABLES Performing Organization Address [facility] Co de Phone Number [address], [place] [address] * (ABNORMAL) Alkaline Phosphatase (12/30/2022 8:45 AM CDT) Only the most recent of5 resultswithin the time period is included. Alk Phos 27(L) 40 - 129 U/L [place] Comment:Testing performed at [facility], [address] [place] [address] Blood 12/30/2022 8:45 AM CDT 12/30/2022 8:54 AM CDT [facility] PA LAB BLOOD ORDERABLES [address], [address] [place] [address] * (ABNORMAL) Glucose Level (12/30/2022 8:45 AM CDT) Only the most recent of5 resultswithin the time period is included. Glucose Level 111(H) 70 - 99 mg/dL [place] Comment: Effective 10/25/15, the glucose reference intervals have been updated based on [place] [employer] guidelines (Standards of Medical Care in Diabetes 2016. Diabetes Care 2016; 39: S13-S22). Fasting blood glucose: Normal: 70-99 mg/dL Impaired fasting glucose (increased risk for diabetes or pre-diabetes): 100- 125 mg/dL Diabetes mellitus: >/=126 mg/dL Random blood glucose: Normal: 70-199 mg/dL Note: Random glucose >100 mg/dL is associated with increased risk for diabetes Testing performed at [facility], [address] [place] [address] Blood 12/30/2022 8:45 AM CDT 12/30/2022 8:54 AM CDT Rupali Pickering PA LAB BLOOD ORDERABLES [address], [address] [place] [address] * Calcium Level (12/30/2022 8:45 AM CDT) Only the most recent of5 resultswithin the time period is included. Calcium Lvl 9.2 8.4 - 10.2 mg/dL [place] Comment:Testing performed at [facility], [address] [place] [address] Blood 12/30/2022 8:45 AM CDT 12/30/2022 8:54 AM CDT Rupali [place] PA LAB BLOOD ORDERABLES [address], [address] [place] [address] * Albumin Level (12/30/2022 8:45 AM CDT) Only the most recent of5 resultswithin the time period is included. Albumin Lvl 3.9 3.5 - 5.2 gm/dL [place] Comment:Testing performed at [facility], [address] [place] [address] Blood 12/30/2022 8:45 AM CDT 12/30/2022 8:54 AM CDT Rupali BAIG LAB BLOOD ORDERABLES [address], [address] [place] [address] * (ABNORMAL) Electrolyte Panel (12/30/2022 8:45 AM CDT) Only the most recent of5 resultswithin the time period is included. Sodium Lvl 135(L) 136 - 145 mEq/L [place] Comment:Testing performed at [facility], [address] [place], [place] [phone] Potassium Lvl 4.3 3.5 - 5.1 mEq/L [place] Comment:Testing performed at [facility], [address] [place], [place] [phone] Chloride 102 98 - 107 mEq/L [place] Comment:Testing performed at [facility], [address] [place], [place] [phone] CO2 25 22 - 29 mEq/L [place] Comment:Testing performed at [facility], [address] [place], [place] [phone] Anion Gap 8 4 - 14 mEq/L [place] Comment:Testing performed at [facility], [address] [place] [address] Blood 12/30/2022 8:45 AM CDT 12/30/2022 8:54 AM CDT Rupali BAIG LAB BLOOD ORDERABLES [facility] [address], [address] [place] [address] * (ABNORMAL) SPIROMETRY W/O DILATORS, DLCO AND BODY PLETHSMOGRAPHIC LUNG VOLUMES (11/15/2022 9:32 AM CDT) FVC (L) pre 5.737 3.876 - 5.828 L 11/15/2022 7:06 AM CDT [facility] FEV1 (L) pre 4.654(H) 2.789 - 4.439 L 11/15/2022 7:06 AM CDT [facility] FEV1/FVC (%) pre 81.127 64.752 - 84.108 % 11/15/2022 7:06 AM CDT [facility] DLCO_SB ml/(min*mmHg) 21.641 13.999 - 30.586 ml/(min*mm Hg) 11/15/2022 7:06 AM CDT [facility] DLCOc_SB ml/(min*mmHg) 22.661 13.999 - 30.586 ml/(min*mm Hg) 11/15/2022 7:06 AM CDT [facility] TLC (L) 8.589 6.310 - 8.613 L 11/15/2022 7:06 AM CDT [facility] RV (L) 2.852 1.932 - 3.281 L 11/15/2022 7:06 AM CDT [facility] RV/TLC (%) 33.205 30.718 - 48.682 % 11/15/2022 7:06 AM CDT [facility] FVC (% pred) pre 118 % 11/15/2022 7:06 AM CDT [facility] FEV1 (%pred) pre 129 % 11/15/2022 7:06 AM CDT [facility] FEV1/FVC (% pred) pre 109 % 11/15/2022 7:06 AM CDT [facility] TLC (% pred) 115 % 11/15/2022 7:06 AM CDT [facility] RV (% pred) 109 % 11/15/2022 7:06 AM CDT [facility] RV/TLC (% pred) 84 % 11/15/2022 7:06 AM CDT [facility] DLCO_SB (% pred) 97 % 11/15/2022 7:06 AM CDT [facility] DLCOc_SB (% pred) 102 % 11/15/2022 7:06 AM CDT [facility] 11/15/2022 6:50 AM CDT Brooke Terrazas NOVELTY PRINTING MACHINE OPERATOR PFT ORDERABLES Performing Organization Address City/[facility]/ZIP Co de Phone Number [facility] * LB Liquid Biopsy Panel V1 Interpretation and Report (11/14/2022 2:40 PM CDT) 11/14/2022 2:40 PM CDT Rupali LANG MOLECULAR PA GNOSTICS (PRECIOUS DEVRIES) Performing Organization Address [facility] Co de Phone Number [facility] Unless otherwise noted, all lab tests performed by: Division of Pathology and Laboratory Medicine [address] [place] [address] * LB NRAS Mutation Analysis Collection, Blood (11/14/2022 2:40 PM CDT) Pathologist [facility] Molecular Diagnostics (Received) Yes [facility] Blood 11/14/2022 2:40 PM CDT 11/15/2022 10:36 AM CDT Rupali LANG MD BLOOD CRISTHIAN ECTIONS Performing Organization Address [facility] Co de Phone Number [facility] Unless otherwise noted, all lab tests performed by: Division of Pathology and Laboratory Medicine [address] [place] [address] * LB APC Mutation Analysis Collection, Blood (11/14/2022 2:40 PM CDT) Pathologist [facility] Molecular Diagnostics (Received) Yes [facility] Blood 11/14/2022 2:40 PM CDT 11/15/2022 10:36 AM CDT Rupali LANG MD BLOOD CRISTHIAN ECTIONS Performing Organization Address City/[facility]/ZIP Co de Phone Number [facility] Unless otherwise noted, all lab tests performed by: Division of Pathology and Laboratory Medicine [address] [place] [address] * LB BRAF Mutation Analysis Collection, Blood (11/14/2022 2:40 PM CDT) [facility] Molecular Diagnostics (Received) Yes [facility] Blood 11/14/2022 2:40 PM CDT 11/15/2022 10:36 AM CDT Rupali LANG MD BLOOD CRISTHIAN ECTIONS Performing Organization Address [facility] Co de Phone Number [facility] Unless otherwise noted, all lab tests performed by: Division of Pathology and Laboratory Medicine [address] [place] [address] * NGS Blood Control (11/14/2022 2:40 PM CDT) [facility] Molecular Diagnostics (Received) Yes [facility] Blood 11/14/2022 2:40 PM CDT 11/15/2022 10:36 AM CDT Rupali CARLISLE HP MOLECULAR DIAG IF ORDERABLES Performing Organization Address [facility] Co de Phone Number [facility] Unless otherwise noted, all lab tests performed by: Division of Pathology and Laboratory Medicine [address] [place] [address] * POC Creatinine (11/08/2022 8:21 AM CDT) [facility] POC Crea 0.9 0.6 - 1.3 mg/dL POC [facility] Comment: Medications, especially hydroxyurea or supplements, such as ascorbate, can interfere with test results causing a falsely and significantly higher result than expected. If a problem is suspected with a patient's result, a sample should be sent to the laboratory for confirmatory testing. Method description: The i-STAT is an analyzer used for in vitro quantification of various analytes in whole blood. The device uses a single disposable cartridge which contains microfabricated sensors, a calibration solution, fluidics system, and a waste chamber. Each test cartridge contains chemically sensitive biosensors on a silicon chip that are configured to perform specific tests. The microfabricated sensors measure analyte concentration by an electrochemical assay. POC EGFR 94 >=60 mL/min/1. 73 sq. m POC [facility] Comment: The eGFRcr is calculated with the 2020 CKD-EPI creatinine equation using creatinine, patient's age, and sex for adults 18 years of age and older. Other factors, especially muscle mass, may affect accuracy and need to be considered. According to the Kidney Disease: Improving Global Outcomes (KDIGO) CKD Work Group 2012 Clinical Practice Guideline, chronic kidney disease (CKD) is defined as the abnormalities of kidney structure or function, present for more than 3 months, with implications for health. CKD should be classified by cause, GFR category, and albuminuria category. KDIGO guidelines provide the following GFR categories Stage Description GFR mL/min/1.73 m2 G1* Normal or high >= 90 G2* Mildly decreased 60-89 G3a Mildly to moderately decreased 45-59 G3b Moderately to severely decreased 30-44 G4 Severely decreased 15-29 G5 Kidney failure <15 *In the absence of evidence of kidney damage, neither G1 nor G2 fulfill criteria for CKD. POC Clean Dev Yes POC [facility] Performing Lab [facility] POC [facility] Comment:[facility] ,[address] [place] [id number], Fishing Rod Mechanic: Jhonatan Del Real MD Blood 11/08/2022 8:21 AM CDT 11/08/2022 8:21 AM CDT Rupali BAIG POCT ORDERABLES - DE VICE POC [facility] Unless otherwise noted, all lab tests performed by: Division of Pathology and Laboratory Medicine [address] [place] [address] * OSI CT CHEST ABDOMEN (10/18/2022 3:11 PM CDT) Narrative Systemgenerated, Documentation - 11/07/2022 3:11 PM CDT Study acquired at another institution. For comparison only. No [facility] originated interpretation requested or available. Brandin Curtis MD IMG OUTSIDE IMAGE OR DERABLES * Pathology Outside Interpretation (10/16/2022) Materials Received Accession#, Stained, Block, Unstained Collected Received A. [id number], 11 SS, 0 BLOCKS, 0 USS 10/16/2022 11/06/2022 11/06/2022 3:02 PM CDT [facility] Diagnosis Outside ([id number], 11 SS, 0 BLOCKS, 0 USS, collected on 10/16/2022): A. Stomach, antrum, biopsy: Gastric antral mucosa with reactive gastropathy. No intestinal metaplasia on PAS/Alcian blue stain. No evidence of Helicobacter pylori organisms on Diff-Quik stain. B. Stomach, body and fundus, biopsy: Fundic gland polyp. No intestinal metaplasia on PAS/Alcian blue stain. No evidence of Helicobacter pylori organisms on Diff-Quik stain. C. EG junction, biopsy: SUPERFICIAL FRAGMENTS OF ADENOCARCINOMA, MODERATELY DIFFERENTIATED . 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 11/06/2022 3:02 PM CDT [facility] Biomarker Block(s) Tumor: C1 11/06/2022 3:02 PM CDT [facility] Disclaimer "Some tests reported here may have been developed and performance characteristics determined by [facility]. These tests have not been specifically cleared or approved by the U.S. Food and Drug Administration. If applicable, controls were reviewed and showed appropriate reactivity." 11/06/2022 3:02 PM CDT [facility] Tissue specimen (specimen) 10/16/2022 11/06/2022 10:07 AM CDT Jaron Cole MD LAB PATHO LOGY ORDERABLES [facility] Cancer [address] [address], [place] after 03/13/2022 Care Teams Business Center Attendant Relationship Specialty Start Date End Date Hesham Lima MD [address] [place] [id number] PCP - External Referring Gastroenterology 10/26/22 Brandin Curtis MD [address] [place] [phone] PCP - General Gastrointestinal Medical Oncology 10/31/22 Quinton Montano MD [address] [place] [phone] Physician Radiation Oncology 11/15/22 Mable Perales MD [address] [place] [address] Consulting Physician Cardiothoracic Surgery 11/14/22 Lyndon Patrick [id number] [facility]. [address] [place], [place] [phone] Interventional Cardiology 03/10/23
--- NOTE | 2023-03-13 21:09 | RAD REPORT ---
EXAM DESCRIPTION: CT - Head Brain Wo Cont - 03/13/2023 8:49 pm CLINICAL HISTORY: Dizziness COMPARISON: None TECHNIQUE: Computed axial tomography of the head was obtained. IV contrast was not requested. All CT scans are performed using dose optimization technique as appropriate and may include automated exposure control or mA/KV adjustment according to patient size. FINDINGS: 3.2 centimeter mass right thalamus. 11 millimeter lesion right frontal lobe with mild to moderate surrounding vasogenic edema. 2.6 centimeter mass medial right occipital lobe with large amount of vasogenic edema. 7 millimeter lesion left parietal lobe. 1.1 centimeter lesion posterior left frontal lobe smaller amount of surrounding vasogenic edema. The wall of the lesions is thickened. No significant shift of midline structures. Right lateral ventricle is compressed by splenic mass. No hydrocephalus No extra-axial fluid collection is noted. IMPRESSION: Bilateral cerebral metastases
[2023-03-13 21:16] LABS: Urine Bilirubin NEGATIVE (Negative); Urine Blood Negative (Negative); Urine Clarity Clear (Clear); Urine Color Light-Yellow (Yellow); Urine Glucose NEGATIVE (Negative); Urine Protein NEGATIVE (Negative); Urine Urobilinogen Normal (Normal)
[2023-03-13 21:18] LABS: Absolute Lymphocytes (CBC) 1.6 K/uL (0.7-4.9); Hematocrit 39.1 % (39.6-49.0); Lymphocytes % 22.4 % (15.3-44.8); MCV 84.7 fL (80-100); MPV 7.5 fL (7.6-11.3); Platelets 211 thou/uL (152-406); RBC Red Blood Cell Count 4.61 M/uL (4.33-5.43)
[2023-03-13 21:25] LABS: Protime INR 1.19
[2023-03-13] MEDS ORDERED: dexAMETHasone 10 MG/ML VIAL ONE (21:25)
[2023-03-13 21:33] LABS: Potassium 3.8 mEq/L (3.5-5.1)
--- NOTE | 2023-03-13 21:56 | EDPHYS ---
Physician Documentation [facility] Name: Del Jacques Age: 67 yrs Sex: Male : 1955 Arrival Date: 03/13/2023 Time: 18:06 Bed 7 Private MD: ED Physician Simeon Esposito HPI: 03/13 20:26 This 67 yrs old Male presents to ER via Ambulatory with complaints of Headache. rn 20:26 The patient complains of pain to the top of head and forehead. The patient describes rn the headache as aching. Onset: The symptoms/episode began/occurred 2 week(s) ago. Associated signs and symptoms: Pertinent positives: weakness, Pertinent negatives: fever, neck stiffness, vision loss, vomiting. Severity of symptoms: At its worst the pain was mild, in the emergency department the pain is unchanged. The symptoms are alleviated by nothing. the symptoms are aggravated by nothing. The patient has not experienced similar symptoms in the past. The patient has been recently seen by a physician:. Family reports approximately 2 weeks of headache, difficulty walking, repeated falls, altered mental status. Family reports history of esophageal cancer, is active, treated at [facility]. Just had a PET scan and saw his oncologist today, recommended to go to the ER for unknown reason, family implies an abnormal finding on the PET scan. Patient did not want to stay there at [facility] so came here instead.. Historical: - Allergies: 19:19 Demerol; nj1 - PMHx: 19:19 Metastatic esophageal cancer; Myocardial infarction; Hypercholesterolemia; Gastric nj1 reflux; Hypertensive disorder; - PSHx: 19:19 Sinus surgery; Heart ablation; nj1 - Immunization history:: Client reports receiving the 2nd dose of the Covid vaccine. - Social history:: Smoking status: Patient/guardian denies using tobacco, Stopped _ months ago 4. - Family history:: not pertinent. - Hospitalizations: : No recent hospitalization is reported. ROS: 20:26 Constitutional: Negative for fever, chills, and weight loss, Eyes: Negative for injury, rn pain, redness, and discharge, Neck: Negative for injury, pain, and swelling, Cardiovascular: Negative for chest pain, palpitations, and edema, Respiratory: Negative for shortness of breath, cough, wheezing, and pleuritic chest pain, Abdomen/GI: Negative for abdominal pain, nausea, vomiting, diarrhea, and constipation, Back: Negative for injury and pain, : Negative for injury, bleeding, discharge, and swelling, MS/Extremity: Negative for injury and deformity, Skin: Negative for injury, rash, and discoloration, Neuro: Positive for headache and generalized weakness Exam: 20:26 Constitutional: This is a well developed, well nourished patient who is awake, alert, rn and in no acute distress. In wheelchair and unsteady gait Head/Face: Normocephalic, atraumatic. Eyes: Pupils equal round and reactive to light, extra-ocular motions intact. Lids and lashes normal. Conjunctiva and sclera are non-icteric and not injected. Cornea within normal limits. Periorbital areas with no swelling, redness, or edema. ENT: Dry mucous membranes Cardiovascular: Regular rate and rhythm. No pulse deficits. Respiratory: No increased work of breathing, no retractions or nasal flaring. Abdomen/GI: Soft, non-tender Skin: Warm, dry MS/ Extremity: Pulses equal, no cyanosis. Neuro: Awake and alert, GCS 15, oriented to person, place, time, and situation. Cranial nerves II-XII grossly intact. Motor strength 4/5 in all extremities. Sensory grossly intact. Unsteady gait and requires assistance to stand, exhibits truncal ataxia Vital Signs: 19:12 BP 119 / 78; Pulse 72; Resp 16; Temp 97.6; Pulse Ox 99% on R/A; Weight 79.83 kg; Height nj1 6 ft. 0 in. ; 19:50 BP 115 / 75; Pulse 68; Resp 18 S; Pulse Ox 99% on R/A; ha1 20:50 BP 111 / 80; Pulse 70; Resp 17 S; Pulse Ox 98% on R/A; ha1 21:45 BP 125 / 91; Pulse 75; Resp 17; Pulse Ox 97% ; vc1 22:30 BP 106 / 81; Pulse 74; Resp 15 S; Pulse Ox 97% on R/A; ha1 23:30 BP 126 / 91; Pulse 67; Resp 15 S; Pulse Ox 98% on R/A; ha1 15 00:30 BP 120 / 91; Pulse 71; Resp 17 S; Pulse Ox 98% on R/A; ha1 01:43 BP 112 / 76; Pulse 68; Resp 18 S; Pulse Ox 98% on R/A; ha1 02:30 BP 117 / 79; Pulse 62; Resp 18; Pulse Ox 95% ; vc1 03/13 19:12 Body Mass Index 23.87 (79.83 kg, 182.88 cm) nj1 [place] Coma Score: 03/13 21:53 Eye Response: spontaneous(4). Motor Response: obeys commands(6). Verbal Response: rn oriented(5). Total: 15. MDM: 19:58 Patient medically screened. rn 21:53 Differential diagnosis: cerebral abscess, intracerebral hemorrhage, migraine, neoplasm, rn subarachnoid bleed, subdural hematoma, tension headache, vasomotor headache. Data reviewed: vital signs, nurses notes, lab test result(s), radiologic studies, CT scan, and as a result, I will admit patient. Consideration of Admission/Observation Patient was admitted/placed on observation. Escalation of care including admission/observation considered. Counseling: I had a detailed discussion with the patient and/or guardian regarding the historical points, exam findings, and any diagnostic results supporting the discharge/admit diagnosis, lab results, radiology results, the need to transfer to another facility, for higher level of care, [facility] does not immediately have the required specialist. ED course: Pt with multiple metastases to brain, with surrounding edema and swelling, confusion, trouble walking, will transfer back to [facility] for further care. . 22:54 ED course: [facility] is aware of transfer initiation, they state they are on downtime rn at this time, request we try back later. Patient okay with waiting. Cannot keep him here with brain mets and swelling, will have to wait for transfer.. 03/13 19:59 Order name: CBC with Diff; Complete Time: 21:26 03/13 19:59 Order name: Basic Metabolic Panel; Complete Time: 21:46 rn 03/13 19:59 Order name: Urinalysis w/ reflexes; Complete Time: : rn 03/13 19:59 Order name: Protime (+inr); Complete Time: 21: rn 03/13 19:59 Order name: Ptt, Activated; Complete Time: 21: rn 03/13 19:59 Order name: CT Head Brain wo Cont; Complete Time: 21:11 rn 03/13 19:59 Order name: IV Start; Complete Time: :14 rn Administered Medications: 21:54 Drug: Decadron - Dexamethasone IVP 10 mg IVP once Route: IVP; Site: right antecubital; ha1 Disposition Summary: 03/13/23 21:55 Transfer Ordered Notes: Transfer Location: Other Acute Care Facility rn Reason: Higher level of care rn Condition: Stable rn Problem: new rn Symptoms: are unchanged rn Accepting Physician: (03/14/23 03:00) jd Diagnosis - Abnormal brain scan - Multiple brain metastases with vasogenic edema rn - Altered mental status, unspecified rn - Repeated falls rn Forms: - Medication Reconciliation Form rn - SBAR form rn Signatures: Dispatcher [employer] EDMS Simeon Esposito MD MD rn Calcote, Vanessa RN RN vc1 Yarely Escalante RN RN ha1 Jillian Logan, RN RN nj1 Corrections: (The following items were deleted from the chart) 21:55 21:55 Dr. preston rn 03/14 03:00 03/13 21:55 Dr. preston 1
--- NOTE | 2023-03-13 21:56 | ER ---
Nurse's Notes [facility] Name: Del Jacques Age: 67 yrs Sex: Male : 1955 Arrival Date: 03/13/2023 Time: 18:06 Bed 7 Private MD: Diagnosis: Abnormal brain scan-Multiple brain metastases with vasogenic edema;Altered mental status, unspecified;Repeated falls Presentation: 03/13 19:12 Chief complaint: Spouse and/or significant other states: headache for the past couple nj1 of weeks, unsteady on his feet, trouble walking for the last 1.5-2 weeks ago. Had PET scan done yesterday, went to see oncologist today, advised to go to their ED but family opted to come to us. Coronavirus screen: Vaccine status: Patient reports receiving the 2nd dose of the covid vaccine. Ebola Screen: Patient denies travel to an Ebola-affected area in the 21 days before illness onset. Initial Sepsis Screen: Does the patient meet any 2 criteria? No. Patient's initial sepsis screen is negative. Does the patient have a suspected source of infection? No. Patient's initial sepsis screen is negative. Risk Assessment: Do you want to hurt yourself or someone else? Patient reports no desire to harm self or others. Onset of symptoms was February 2023. 19:12 Method Of Arrival: Ambulatory [facility] 19:12 Acuity: LORENE 3 nj1 Triage Assessment: 21:00 Headache History: Denies prior headaches. General: Appears comfortable, Behavior is ha1 calm, cooperative. Pain: Pain began gradually, Also complains of no other associated symptoms. Historical: - Allergies: 19:19 Demerol; nj1 - PMHx: 19:19 Metastatic esophageal cancer; Myocardial infarction; Hypercholesterolemia; Gastric nj1 reflux; Hypertensive disorder; - PSHx: 19:19 Sinus surgery; Heart ablation; nj1 - Immunization history:: Client reports receiving the 2nd dose of the Covid vaccine. - Social history:: Smoking status: Patient/guardian denies using tobacco, Stopped _ months ago 4. - Family history:: not pertinent. - Hospitalizations: : No recent hospitalization is reported. Screenin:19 Abuse screen: Denies threats or abuse. Denies injuries from another. Nutritional ha1 screening: No deficits noted. Tuberculosis screening: No symptoms or risk factors identified. 03/14 03:00 [facility] ED Fall Risk Assessment (Adult) History of falling in the last 3 months, vc1 including since admission Yes- physiologic fall (2 pts) Confusion or Disorientation Yes (5 pts) Intoxicated or Sedated No (0 pts) Impaired Gait Yes (1 pt) Mobility Assist Device Used No (0 pt) Altered Elimination No (0 pt). Assessment: 03/13 00:50 Reassessment: Patient and/or family updated on plan of care and expected duration. Pain ha1 level reassessed. Patient is alert, oriented x 3, equal unlabored respirations, skin warm/dry/pink. Patient denies pain at this time. 19:45 General: Appears comfortable, Behavior is calm, cooperative. Pain:. Pain: Complains of ha1 pain in forehead and top of head Pain does not radiate. Pain currently is 5 out of 10 on a pain scale. Quality of pain is described as pressure. Neuro: Level of Consciousness is awake, alert, obeys commands, Oriented to person, place, time, Reports feeling confusion at times. Cardiovascular: Capillary refill < 3 seconds Patient's skin is warm and dry. Respiratory: Airway is patent Respiratory effort is even, unlabored, Respiratory pattern is regular, symmetrical. GI: No signs and/or symptoms were reported involving the gastrointestinal system. : No signs and/or symptoms were reported regarding the genitourinary system. Derm: Skin is Skin is pink, warm \T\ dry. 20:50 Reassessment: Patient and/or family updated on plan of care and expected duration. Pain ha1 level reassessed. Patient is alert, oriented x 3, equal unlabored respirations, skin warm/dry/pink. 21:52 Reassessment: No changes from previously documented assessment. Patient and/or family vc1 updated on plan of care and expected duration. Pain level reassessed. Patient is alert, oriented x 3, equal unlabored respirations, skin warm/dry/pink. 22:50 Reassessment: Patient and/or family updated on plan of care and expected duration. Pain ha1 level reassessed. Patient is alert, oriented x 3, equal unlabored respirations, skin warm/dry/pink. Patient denies pain at this time. 23:50 Reassessment: Patient and/or family updated on plan of care and expected duration. Pain ha1 level reassessed. Patient is alert, oriented x 3, equal unlabored respirations, skin warm/dry/pink. Patient denies pain at this time. 03/14 00:50 Reassessment: Patient and/or family updated on plan of care and expected duration. Pain ha1 level reassessed. Patient is alert, oriented x 3, equal unlabored respirations, skin warm/dry/pink. family member at bedside. 01:50 Reassessment: Patient and/or family updated on plan of care and expected duration. Pain ha1 level reassessed. Patient is alert, oriented x 3, equal unlabored respirations, skin warm/dry/pink. Vital Signs: 03/13 19:12 BP 119 / 78; Pulse 72; Resp 16; Temp 97.6; Pulse Ox 99% on R/A; Weight 79.83 kg; Height nj1 6 ft. 0 in. ; 19:50 BP 115 / 75; Pulse 68; Resp 18 S; Pulse Ox 99% on R/A; ha1 20:50 BP 111 / 80; Pulse 70; Resp 17 S; Pulse Ox 98% on R/A; ha1 21:45 BP 125 / 91; Pulse 75; Resp 17; Pulse Ox 97% ; vc1 22:30 BP 106 / 81; Pulse 74; Resp 15 S; Pulse Ox 97% on R/A; ha1 23:30 BP 126 / 91; Pulse 67; Resp 15 S; Pulse Ox 98% on R/A; ha1 03/14 00:30 BP 120 / 91; Pulse 71; Resp 17 S; Pulse Ox 98% on R/A; ha1 01:43 BP 112 / 76; Pulse 68; Resp 18 S; Pulse Ox 98% on R/A; ha1 02:30 BP 117 / 79; Pulse 62; Resp 18; Pulse Ox 95% ; vc1 03/13 19:12 Body Mass Index 23.87 (79.83 kg, 182.88 cm) nj1 [place] Coma Score: 03/13 21:53 Eye Response: spontaneous(4). Motor Response: obeys commands(6). Verbal Response: rn oriented(5). Total: 15. ED Course: 03/12 20:00 Patient has correct armband on for positive identification. Placed in gown. Bed in low ha1 position. Call light in reach. Side rails up X2. Adult w/ patient. 03/13 18:09 Patient arrived in ED. im 19:19 Triage completed. nj1 19:22 Arm band placed on left wrist. nj1 19:25 Notified Charge Nurse of chief complaint and vital signs. nj1 19:58 Simeon Esposito MD is Attending Physician. rn 20:00 Inserted saline lock: 20 gauge in right antecubital area, using aseptic technique. ha1 Blood collected. 20:51 CT Head Brain wo Cont In Process Unspecified. EDMS 21:14 Protime (+inr) Sent. ha1 21:14 Ptt, Activated Sent. ha1 21:14 Urinalysis w/ reflexes Sent. ha1 21:14 Basic Metabolic Panel Sent. ha1 21:14 CBC with Diff Sent. ha1 22:15 Initiated transfer to [facility], spoke with crescencio Mckinnon. Denied due to being on Downtime, but stated to her that we could call back later and if bed available then they would accept. 03/14 00:16 Called to get update on whether they are still on Downtime, they stated they still are. wm 01:39 Initiated transfer to [facility], spoke with Pantera Blas. 01:50 Pt accepted for transfer to [facility] by Mamadou Ellis to the Neuro IMU per Pantera Blas. 02:20 EMS accepted for transport, ETA \T\ 0215. 02:57 No provider procedures requiring assistance completed. Patient transferred, IV remains vc1 in place. Administered Medications: 03/13 21:54 Drug: Decadron - Dexamethasone IVP 10 mg IVP once Route: IVP; Site: right antecubital; ha1 Medication: 21:19 VIS not applicable for this client. ha1 Outcome: 21:55 ER care complete, transfer ordered by . rn 03/14 02:57 Transferred by ground EMS to [facility], Note: pt sent to [facility] vc1 Condition: stable 02:59 Condition: stable ha1 03:00 Patient left the ED. vc1 Signatures: Dispatcher [employer] EDMS Simeon Esposito MD MD rn Marsh, Wendy Kaelyn Waldrop RN RN vc1 Yarely Escalante RN RN [facility] Jillian Logan RN RN nj1 Yaz Rodriguez
[2023-03-14 04:10] VITALS: TEMP 97.6
[2023-03-14 04:29] VITALS: BP 117/79; O2SAT 95
== END 2023-03-14 03:00 ==
LOC: ER 18:06
DX: C79.31 Secondary malignant neoplasm of brain (principal); C15.9 Malignant neoplasm of esophagus, unspecified; R29.6 Repeated falls; I10 Essential (primary) hypertension; I25.2 Old myocardial infarction; Z88.5 Allergy status to narcotic agent
CPT/HCPCS: 85025; 80048; 36415; 85610; 85730; 81003; 70450; 96374; 99285; J1100